=== PATIENT | male | born 1980 | race Native Hawaiian/Other Pacific Islander ===

== ENCOUNTER 2022-02-23 14:39 | Outpatient (CLI) | payer OTHER ==
[2022-02-23 15:09] LABS: PLATELET COUNT 328 K/uL (142-355)
[2022-02-23 15:13] LABS: POTASSIUM 3.9 mmol/L (3.6-5.2)
== END 2022-02-23 18:55 | disposition home or self-care (01) ==
LOC: LABW 14:39
PROVIDERS: ATTEND Nurse Practitioner Family
DX: R53.83 Other fatigue (principal); R53.81 Other malaise; R68.82 Decreased libido
CPT/HCPCS: 36415; 80053; 80061; 82306; 82607; 83036; 84153; 84402; 84403; 84439; 84443; 85027

== ENCOUNTER 2022-02-24 17:02 | Outpatient (CLI) | payer OTHER | END 2022-02-24 19:07 | disposition home or self-care (01) | LOC: LAB 17:02 | PROVIDERS: ATTEND Nurse Practitioner Family | DX: R53.83 Other fatigue (principal); R68.82 Decreased libido; R53.81 Other malaise | CPT/HCPCS: 84402; 84403 ==